=== PATIENT | male | born 1945 | race Caucasian/White ===

== ENCOUNTER 2022-07-18 07:07 | Inpatient (IN) ==
[~2022-07-18 07:07] MED LIST: Acetaminophen IV 1,000 MG/100 ML BAG IVPB ONE; Famotidine 20 MG/2 ML VIAL IVP ONE; Ringers Solution, Lactated 1,000 ML IVC ONE
[2022-07-18] MEDS ORDERED: Ondansetron 4 MG/2 ML VIAL ONE (07:30)
[2022-07-18] MEDS ORDERED: *HR* Succinylcholine 200 MG/10 ML VIAL IVP ONE (07:30)
[2022-07-18] MEDS ORDERED: Lidocaine -MPF 2% 5 ML VIAL ONE (07:30)
[2022-07-18] MEDS ORDERED: Lidocaine HCL 4 ML Topical Solution (Laryng-O-Jet Kit Sterile Pak) TP ONE (07:31)
[2022-07-18] MEDS ORDERED: *HR* Propofol 200 MG/20 ML VIAL IVP ONE ×2 (07:32→09:56)
[2022-07-18] MEDS ORDERED: *HR* FentaNYL (PF) 100 MCG/2 ML VIAL ONE (07:33)
[2022-07-18] MEDS ORDERED: Acetaminophen IV 1,000 MG/100 ML BAG IVPB PRN (08:44)
[2022-07-18] MEDS ORDERED: *HR* FentaNYL (PF) 100 MCG/2 ML VIAL IVP PRN (08:44)
[2022-07-18] MEDS ORDERED: Albuterol 2.5 MG/3 ML NEBULIZER IH PRN (08:44)
[2022-07-18] MEDS ORDERED: Ipratropium Neb 0.5 MG NEBULIZER IH PRN (08:44)
[2022-07-18] MEDS ORDERED: Nitroglycerin 0.4 MG TAB.SUBL SL PRN (08:44)
[2022-07-18] MEDS ORDERED: Naloxone 0.4 MG/ML INJ IVP PRN ×2 (08:44→16:05)
[2022-07-18] MEDS ORDERED: Ondansetron 4 MG/2 ML VIAL IVP PRN ×2 (08:44→16:05)
[2022-07-18] MEDS ORDERED: EPHEDrine 50 MG/ML VIAL ONE (09:11)
[2022-07-18] MEDS ORDERED: *HR* Metoprolol 5 MG/5 ML VIAL IVP PRN (10:51)
[2022-07-18] MEDS ORDERED: Ipratropium/Albuterol Neb 3 ML ONE (10:59)
[2022-07-18] MEDS ORDERED: Ipratropium/Albuterol Neb 3 ML IH ONE (11:03)
[2022-07-18] MEDS ORDERED: Hydrocortisone Sodium Succ 100 MG/2 ML VIAL IVP ONE (11:59)
[2022-07-18] MEDS ORDERED: *HR* OxyCODONE Immed Rel 5 MG TABLET PO PRN (16:05)
[2022-07-18] MEDS ORDERED: Acetaminophen 325 MG TABLET PO PRN (16:05)
[2022-07-18] MEDS ORDERED: *HR* HYDROcodone/Acet 5/325 mg TABLET PO PRN (16:05)
[2022-07-18] MEDS: *HR* Heparin 5,000 UNIT/ML VIAL SQ SCH (18:43)
[2022-07-19 03:05] LABS: Basophils % 0.1 %; Immature Granulocytes % 0.4 % (0-4); Lymphocytes # 1.1 K/mcL (0.6-4.6); Lymphocytes % 11.5 %; Mean Corpuscular HGB Conc 32.7 g/dL (31.6-35.5); Mean Corpuscular Hemoglobin 31.2 pg (28.0-33.3); Mean Corpuscular Volume 95.5 fL (83.0-100.0); Mean Platelet Volume 10.5 fL (9.4-12.4); Monocytes # 1.1 K/mcL (0.0-1.3); Monocytes % 11.7 %; Neutrophils # 6.9 K/mcL (1.6-8.9); Platelet Count 240 K/mcL (140-400); Red Blood Count 3.14 M/mcL (4.19-5.50); Red Cell Distribution Width 13.3 % (11.5-14.5); Segmented Neutrophils % 76.3 %; White Blood Count 9.1 K/mcL (4.3-11.1)
[2022-07-19 03:18] LABS: Hemoglobin 9.8 g/dL (12.9-16.9)
[2022-07-19 03:25] LABS: BUN/Creatinine Ratio 17 (6-26); Blood Urea Nitrogen 14 mg/dL (8-23); Calcium 8.6 mg/dL (8.6-10.3); Carbon Dioxide 28 mEq/L (23-29); Chloride 99 mEq/L (98-107); Glucose 110 mg/dL (70-105); Magnesium 1.7 mg/dL (1.6-2.6); Osmolality,Calculated 277 (280-300); Potassium 4.4 mEq/L (3.5-5.1); Sodium 133 mEq/L (136-145)
[2022-07-19] MEDS: *HR* Heparin 5,000 UNIT/ML VIAL SQ SCH ×2 (05:43→18:26)
[2022-07-19] MEDS ORDERED: Tiotropium 10 INH DOSE IH ONE (07:17)
[2022-07-19] MEDS: Budesonide/Formoterol 160/4.5 1 PUFF INH IH SCH ×2 (07:44→20:40)
[2022-07-19] MEDS: Tiotropium 10 INH DOSE IH SCH (07:44)
[2022-07-19] MEDS: Aspirin Enteric Coated 81 MG Tablet PO SCH (09:40)
[2022-07-19] MEDS: lisinopriL 10 MG TABLET PO SCH (09:40)
[2022-07-19] MEDS ORDERED: MethylPREDNISolone 40 MG/ML VIAL IVP ONE (16:56)
[2022-07-19] MEDS ORDERED: Melatonin 3 MG TABLET PO PRN (22:25)
[2022-07-20] MEDS: *HR* Heparin 5,000 UNIT/ML VIAL SQ SCH (05:52)
[2022-07-20] MEDS: Tiotropium 10 INH DOSE IH SCH (07:32)
[2022-07-20] MEDS: Budesonide/Formoterol 160/4.5 1 PUFF INH IH SCH (07:32)
[2022-07-20] MEDS: lisinopriL 10 MG TABLET PO SCH (09:28)
[2022-07-20] MEDS: Aspirin Enteric Coated 81 MG Tablet PO SCH (09:28)
[2022-07-20 10:51] VITALS: O2SAT 97
[2022-07-20 11:36] VITALS: BP 169/93; PULSE 113; TEMP 98.2
== END 2022-07-20 14:15 | disposition home or self-care (01) | DRG 199 ==
LOC: SAMDAY 07:07 → 2NENU 07:07 → SUATTDRO 16:07
PROVIDERS: ADMIT Internal Medicine; ATTEND Internal Medicine
PROC: ENDOLBX (2022-07-18 08:45)